=== PATIENT | male | born 1990 | race African-American/Black ===

== ENCOUNTER 2025-09-29 07:54 | Emergency (ER) | payer BC ==
[~2025-09-29] VITALS: Ht 180.3 cm; Wt 90.9 kg
[2025-09-29] MEDS: PERTUSS(ACELL),DIPH,TET/PF 0.5 ML SYRINGE [ADULT] IM. ONE (09:04)
[2025-09-29] MEDS: PROPARACAINE HCL 0.5% 15 ML OPHTHALMIC SOLUTION OU ONE (09:04)
[2025-09-29] MEDS: FLUORESCEIN SODIUM 1 MG STRIP OU ONE (09:05)
[2025-09-29] MEDS: MORPHINE SULFATE 4 MG/ML SYRINGE IVP ONE (09:05)
[2025-09-29] MEDS: CeFAZolin 1 GM/DEXTROSE 50 ML IV ONE (09:05)
[2025-09-29] MEDS: BACITRACIN 0.9 GM PACKET OINTMENT TP ONE (09:05)
[2025-09-29] MEDS: ONDANSETRON HCL 4 MG/2 ML VIAL IVP ONE (09:05)
[2025-09-29] MEDS: LIDOCAINE 1% 10 ML VIAL ID ONE (09:06)
[2025-09-29] MEDS: SODIUM CHLORIDE 0.9% 500 ML IRRIG SOLUTION BOTTLE IRRIG ONE (09:06)
[2025-09-29 09:08] LABS: PLATELET COUNT (AUTO) 154 K/uL (150-450); RED BLOOD CELL COUNT(AUTO) 5.00 MIL/uL (4.50-5.90); RED CELL DISTRIBUTION WIDTH 13.8 % (11.5-14.5); WHITE BLOOD COUNT (AUTO) 9.5 K/uL (4.5-11.0)
[2025-09-29 09:17] LABS: CALCIUM, TOTAL 8.5 mg/dL (8.8-10.5); CREATININE 1.05 mg/dL (0.60-1.30); GLOMERULAR FILTR. RATE CALC > 60 mL/min (>60); GLUCOSE,RANDOM 96 mg/dL (70-110); SODIUM SERUM 140 mmol/L (136-145); UREA NITROGEN, BLOOD 13 mg/dL (7-18)
[2025-09-29 09:22] LABS: ASPARTATE AMINOTRANSFERASE 29 U/L (15-37); TOTAL PROTEIN, SERUM 7.2 g/dL (6.4-8.2)
[2025-09-29] MEDS ORDERED: IOHEXOL 350 MG/ML 100 ML VIAL ONE (09:27)
[2025-09-29] MEDS ORDERED: SODIUM CHLORIDE 0.9% 100 ML ONE (09:27)
[2025-09-29] MEDS: OxyCODONE HCL/ACETAMINOPHEN 5-325 MG TABLET PO ONE (13:34)
[2025-09-29 15:08] VITALS: BP 118/79; PULSE 52; RESP 18; TEMP 97.9; O2SAT 99
[2025-09-29] MEDS ORDERED: CEPH-558 PO (15:09)
[2025-09-29] MEDS ORDERED: HYDR-4062 PO (15:09)
[2025-09-29] MEDS: HYDROCODONE/ACETAMINOPHEN 5-325 MG TABLET PO ONE (15:24)
== END 2025-09-29 17:55 | disposition home or self-care (01) ==
LOC: EMS 08:00
DX: S01.111A Laceration without foreign body of right eyelid and periocular area, initial encounter (principal); H11.31 Conjunctival hemorrhage, right eye; F12.90 Cannabis use, unspecified, uncomplicated; Z98.890 Other specified postprocedural states; Y04.0XXA Assault by unarmed brawl or fight, initial encounter; Y93.89 Activity, other specified; Y92.89 Other specified places as the place of occurrence of the external cause; Y99.8 Other external cause status
CPT/HCPCS: 70450; 99291; 96365; 96375; 80053; 85025; 85610; 85730; 70486; 71260; 72125; 74177; 90715; 90471; 12011; 72193; 74160; Q9967; J0690; J2270; J2405; J3490; J7050